=== PATIENT | male | born 1995 | race Caucasian/White ===

== ENCOUNTER 2018-10-07 02:09 | Emergency (ER) | payer SELFPAY ==
[~2018-10-07] VITALS: Ht 193 cm; Wt 90.7 kg
[2018-10-07 02:21] VITALS: BP 134/85
== END 2018-10-07 02:46 | disposition home or self-care (01) ==
LOC: ED 02:09
DX: S00.81XA Abrasion of other part of head, initial encounter (principal); W20.8XXA Other cause of strike by thrown, projected or falling object, initial encounter; Y93.89 Activity, other specified; Y92.69 Other specified industrial and construction area as the place of occurrence of the external cause; Y99.8 Other external cause status